=== PATIENT | female | born 1955 | race Caucasian/White ===

== ENCOUNTER → 2024-06-11 | Outpatient (CLI) | payer BC ==
[2024-06-11] MEDS: LEXISCAN IV ONE (09:24)
== END | disposition home or self-care (01) ==
LOC: RAD 08:49
PROVIDERS: ATTEND Internal Medicine
DX: I21.4 Non-ST elevation (NSTEMI) myocardial infarction (principal)
CPT/HCPCS: 78452; 93017; J2785; A9500